=== PATIENT | male | born 1975 | race Two or more races ===

== ENCOUNTER 2020-03-28 19:24 | Emergency (ER) | payer SELFPAY ==
[~2020-03-28] VITALS: Ht 188 cm; Wt 99.8 kg
--- NOTE | 2020-03-28 19:42 | Emergency Room Report ---
History of Present Illness General Chief Complaint: Behavioral Complaint Source: Patient, Law Enforcement Present Illness HPI 44-year-old male brought in by PD on 5150 hold for danger to others. Patient is a schizophrenic. He was allegedly threatening the lives of his family and has neighbors according to PD. Patient is uncooperative with assessment He is agitated, found in a spit mask secondary to spitting, and in four-point restraints placed by PD. He denies any complaints at this time and is stating "get me out" The patient's symptoms were gradual onset, severity was moderate, duration since 1 day. Quality: Denies pain Denies auditory or visual hallucination. Past medical history: Schizophrenia Past surgical history: Unable to obtain Smoking: Unable to obtain Alcohol use: Unable to obtain Drug use: Unable to obtain Review of systems: CONST: No fevers or chills, No night sweats PULMONARY: No productive cough, No shortness of breath CARDIAC: No chest pain, No palpitations GI: No vomiting, No diarrhea , No melena_or_BRBPR : No dysuria, No hematuria, No discharge NEURO: No new_focal_weakness_or_numbness, No confusion, No vision changes 14 point Review of Systems is otherwise negative except per HPI Physical Exam: GENERAL: Awake_alert_ nontoxic, no acute distress Spo2 99% on RA -normal EYES: Extraocular muscles are intact. Conjunctivae clear. Lids without swelling ENT: External nose and ear normal_in_appearance. Oropharynx clear. Head_ atraumatic, Moist_oral_mucosa NECK: No JVD. No meningismus. No thyromegaly. Supple. Trachea midline RESP: Normal respiratory effort. Symmetric rise. No stridor. Clear_to_ auscultation_No_rales_No_wheezes CARDIAC: Regular rate and regular rhytm. No_significant pedal edema. ABDOMEN: Soft. Nondistended. Nontender_No_rebound_or_guarding. MSK: Normal muscle tone, without rigidity. Extremities without asymmetric deformity or swelling. SKIN: Warm and dry. No visible cyanosis or pallor NEUROLOGIC: Alert, oriented x3. Motor_and_sensation_grossly_intact. Psych: Agitated. Thrashing in bed. Danger to staff. Spitting. Denies suicidal ideation. Will not cooperate. - COORDINATION OF CARE Case was discussed with: Patient Any labs and imaging that were ordered were interpreted as part of the medical decision making: Medical Decision Making/Plan: Differential diagnosis includes severe depression, suicidal ideation, bipolar disorder, psychosis, delusions, paranoid schizophrenia, drug abuse, drug intoxication, drug overdose, among others. The patient denies any suicide attempt, overdose, or ingestion. They exhibit no signs of any toxic syndrome or drug / alcohol withdrawal. Labs were ordered for evaluation. Largely unremarkable. Has Leukocytosis of 14, likely hemoconcentration. Also K3.3. Repleted. Also mild jose Cr 1.4 EKG is negative for obvious TCA OD however his QT interval is prolonged at 496. Mg given. Repeat EKG shows prolonged qt so more Mg given. ED intervention included hydration and IV magnesium 2g x2 Due to agitation, patient necessitated chemical sedation. He received Benadryl , Ativan, Haldol. He also needed to be kept in restraints secondary to being a danger to staff. The patient was observed for a period of time in the ED with serial neurologic exams. The patients presentation seems to be consistent with agitation / psychosis. They meet psychiatric hold criteria because of danger to others. The patient appears to be stable for transfer to a psychiatric facility for further psychiatric evaluation and care, without any obvious medical etiology for their symptoms. 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 Time is exclusive of separately billable procedures. Time includes: direct patient care, continuous monitoring and multiple patient reassessment, coordination of patient care, review of patient's medical records , medical consultation, family consultation regarding treatment decisions and documentation of patient care. Medical Decision Making Diagnostic Impression: Primary Impression: Agitation Additional Impressions: Homicidal ideation Schizophrenia Prolonged QT interval Methamphetamine abuse Marijuana abuse Hypokalemia JOSE (acute kidney injury) EKG Diagnostic Results BETSEY Joseph 12-lead EKG (interpreted by me) Time: 2017 Indication: Rhythm analysis Tracing visualized and Interpreted by me. Rhythm: Normal sinus rhythm Rate: 84 bpm QTc: 496 Morphology: No_significant_ST_elevations_or_depressions, No STEMI Impression: Prolonged QT interval. Normal sinus rhythm. Possible left ventricular hypertrophy 12-lead EKG (interpreted by me) Time: 2137 Indication: Rhythm analysis Tracing visualized and Interpreted by me. Rhythm: Normal sinus rhythm Rate: 81 bpm QTc: 497 normal sinus rhythm. Sinus arrhythmia. Morphology: No_significant_ST_elevations_or_depressions, No STEMI Impression: Prolonged QT Rhythm Strip Diag. Results Rhythm Strip Time: 20:29 EP Interpretation: yes Rate: 84 Rhythm: NSR, no PVC's, no ectopy Chest X-Ray Diagnostic Results Chest X-Ray Diagnostic Results : BETSEY Joseph Chest X-Ray: Views: 1 view(s) Indication: Altered mental status Findings: Normal heart size. Mediastinum normal. No infiltrate. Impression: No acute disease The X-ray(s) were independently viewed and interpreted contemporaneously Electronically signed by Kelsey arenas DO CT/MRI/US Diagnostic Results CT/MRI/US Diagnostic Results : Impression CT Head no Contrast Findings Patel-white matter differentiation is seen to be normal. Ventricles, extra-axial CSF spaces are seen to be unremarkable. No acute intracranial hemorrhage mass-effect or edema. Impression: No acute intracranial finding. Reevaluation Time: 22:40 Last Vital Signs Date Time Temp Pulse Resp B/P (MAP) Pulse Ox O2 Delivery O2 Flow Rate FiO2 03/28/20 19:27 22 99 Room Air Status: improved Disposition: PSYCH HOSP/UNIT Admit Decision Time: 20:29 Condition: Stable Kelsey Martinez D.O. Mar 28, 2020 19:42
[2020-03-28 19:45] VITALS: BP 127/81
[2020-03-28] MEDS ORDERED: Haloperidol 5mg/ml Inj IM ONE (19:45)
[2020-03-28] MEDS ORDERED: LORazepam Inj 2mg/ml 1ml IM ONE (19:45)
[2020-03-28] MEDS ORDERED: DiphenhydrAMINE 50mg/ml Inj IM ONE (19:45)
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
--- NOTE | 2020-03-28 20:00 | NUR ---
ED Nurse Note: After [employer] left room, patient calmed down and was cooperative with RN. Patient reoriented and explained situation. Patient reminded he cannot use foul language with staff. Patient agreed with plan. Will plan to DC restraints.
[2020-03-28 20:05] VITALS: BP 128/85
--- NOTE | 2020-03-28 20:05 | NUR ---
ED Nurse Note: Per SALONI JAMES violent restraints at this time. Patient is calm and cooperative. Will continue to monitor for change in condition.
--- NOTE | 2020-03-28 21:00 | NUR ---
BELONGINGS IN LOCKER #2.
[2020-03-28 21:07] LABS: ANION GAP 9 mmol/L (5-15); BASOPHILS % (AUTO) 1.3 % (0.0-2.0); BLOOD UREA NITROGEN 22 mg/dL (7-18); CALCIUM 9.3 MG/DL (8.5-10.1); CARBON DIOXIDE 29 MMOL/L (21-32); CHLORIDE 102 MMOL/L (98-107); CREATININE 1.4 MG/DL (0.55-1.30); EOSINOPHILS % (AUTO) 1.3 % (0.0-3.0); HEMOGLOBIN 13.1 G/DL (14.2-18.0); LYMPHOCYTES % (AUTO) 11.9 % (20.0-45.0); MEAN CORPUSCULAR VOLUME 86 FL (80-99); MONOCYTES % (AUTO) 5.5 % (1.0-10.0); NEUTROPHILS % (AUTO) 80.1 % (45.0-75.0); PLATELET COUNT 311 K/UL (150-450); POTASSIUM 3.3 MMOL/L (3.5-5.1); RED BLOOD COUNT 4.65 M/UL (4.70-6.10); RED CELL DISTRIBUTION WIDTH 13.2 % (11.6-14.8); SODIUM 140 MMOL/L (136-145); WHITE BLOOD COUNT 14.2 K/UL (4.8-10.8)
[2020-03-28 21:10] LABS: AMMONIA < 10 umol/L (11-32); APPEARANCE,URINE SLIGHTLY CLOUDY; BILIRUBIN, URINE NEGATIVE (NEGATIVE); GLUCOSE, URINE (UA) NEGATIVE (NEGATIVE); KETONES,URINE 1+ (NEGATIVE); LEUKOCYTE ESTERASE ,URINE NEGATIVE (NEGATIVE); NITRITE,URINE NEGATIVE (NEGATIVE); PH,URINE 5 (4.5-8.0); PROTEIN,URINE 2+ (NEGATIVE); UROBILINOGEN,URINE 1 MG/DL (0.0-1.0)
[2020-03-28] MEDS ORDERED: cefTRIAXone 1 GM in NS 55 ML IVPB ONE (21:15)
[2020-03-28 21:16] LABS: COLOR,URINE YELLOW
[2020-03-28 21:19] LABS: ALANINE AMINOTRANSFERASE 33 U/L (12-78); ALKALINE PHOSPHATASE 67 U/L (46-116); ASPARTATE AMINO TRANSFERASE 28 U/L (15-37); CREATINE KINASE 235 U/L (26-308)
--- NOTE | 2020-03-28 21:36 | Diagnostic Imaging Report ---
INDICATION: Altered mental status COMPARISON: FINDINGS: Single frontal view demonstrates a normal cardiomediastinal silhouette. The lungs are clear. No pleural effusions. The visualized osseous structures are within normal limits. IMPRESSION: No acute cardiopulmonary disease.
--- NOTE | 2020-03-28 21:54 | Diagnostic Imaging Report ---
CT head without contrast History: Altered mental status Technique: Axial noncontrast head CT. Technique more: CTDI is 53.4 mGy and DLP is 1045.50 mGy-cm. Technique more: One or more of the following dose reduction techniques were used: automated exposure control, adjustment of the mA and/or kV according to patient size, use of iterative reconstruction technique. Comparison: None Findings: Patel-white matter differentiation is seen to be normal. Ventricles, extra-axial CSF spaces are seen to be unremarkable. No acute intracranial hemorrhage mass-effect or edema. Impression: No acute intracranial finding.
[2020-03-28 23:30] VITALS: BP 124/68
--- NOTE | 2020-03-28 23:30 | NUR ---
ED Nurse Note: Patient is sleeping soundly, in no acute distress. Vital signs are stable. RN is bedside as sitter with continuous monitoring. Safety measures met.
[2020-03-29] VITALS (9 sets, daily range): BP systolic 118–127; BP diastolic 65–87
--- NOTE | 2020-03-29 01:00 | NUR ---
ED Nurse Note: Patient is snoring, sleeping soundly in bed. NAD noted. RN remains bedside as sitter; safety precautions in place. Will continue to monitor.
--- NOTE | 2020-03-29 03:04 | NUR ---
HAND-OFF: Report given to RAMÓN Travis. Patient is in bed with safety measures in place. Patient has been sleeping.
--- NOTE | 2020-03-29 03:05 | NUR ---
ED Nurse Note: Report received from MARIELOS MELGAR. Patient asleep on bed
--- NOTE | 2020-03-29 05:00 | NUR ---
ED Nurse Note: Patient asleep on bed. No signs of agitation/anxiety noted
--- NOTE | 2020-03-29 07:12 | NUR ---
HAND-OFF: Report given to KAITLIN MELGAR. No changes in behavior noted.
--- NOTE | 2020-03-29 07:34 | NUR ---
ED Nurse Note: Sitter at bedside. Pt eating breakfast. Pt denies SI or HI. Awake and a&ox4.
--- NOTE | 2020-03-29 08:57 | NUR ---
ED Nurse Note: Pt moved ti Fast track. Report given to Selene MELGAR.
--- NOTE | 2020-03-29 12:10 | NUR ---
ED Nurse Note: Dougherty and juice provided to pt. 100 % consumed. Isadora mandel at the bed side.
--- NOTE | 2020-03-29 13:00 | NUR ---
ED Nurse Note: Pt calm and restinmg on gurney with no distress. Sitter Isadora at the bed side. Will continue to closely monitor.
--- NOTE | 2020-03-29 13:25 | NUR ---
HAND-OFF: Report given to Avis MELGAR.
--- NOTE | 2020-03-29 13:30 | NUR ---
ED Nurse Note: pt care endorsed by RAMÓN Hewitt. Pt is calm and resting on gurney with no acute distress noted at this time. pt was provided with extra blankets and lights dimmed for comfort. Sitter Isadora at the bed side, all safety precautions are in place. L AC IV line is patent and intact, flushing well. Will continue to closely monitor.
--- NOTE | 2020-03-29 14:42 | NUR ---
ED Nurse Note: pt asked and was provided with sandwich and juices. tolerated well. dinner tray ordered for pt. sitter remains at bedside, all safety precautions are in place. will cont to monitor pt
--- NOTE | 2020-03-29 16:00 | NUR ---
ED Nurse Note: Pt able to ambulate to restroom with steady gait, appears to be agitated d/t not being placed at a psych facility yet. RN explained to pt that we are calling multiple facilities, pt verablized understanding and calmed down. Sitter Isadora at the bed side, all safety precautions are in place. L AC IV line is patent and intact, flushing well. Will continue to closely monitor.
--- NOTE | 2020-03-29 18:05 | NUR ---
ED Nurse Note: Pt is resting on gurney with no acute distress noted at this time, when he is awake he talks to himself. lights are dimmed for comfort, all safety precautions are in place. Will continue to closely monitor.
--- NOTE | 2020-03-29 20:43 | NUR ---
ED Nurse Note: Pt talking to self, making rude remarks to RN, when asked to stop pt complies but continues to talk to himself loudly in his room. no acute distress is noted at this time, pt provided with and consumed dinner without incident. all safety precautions are in place. will cont to monitor pt
--- NOTE | 2020-03-29 22:15 | NUR ---
ED Nurse Note: Received patient sleeping in bed with no acute distress. respirations even and unlabored. arousable to name. patient ao4. denies pain, si or hi. calm and cooperative. Environmental risk safety preacutions observed. Decreased environmental stimuli. Offered nourishment and toileting; patient refused and fell back asleep. All safety measures met. Ressumed continuous monitoring; patient within visual distance.
--- NOTE | 2020-03-29 22:17 | NUR ---
HAND-OFF: Report given to Iam Butts RN.
--- NOTE | 2020-03-29 23:30 | NUR ---
ED Nurse Note: Confirmed belongings placement in Psych locker 2 with copy of belongings list; original list in chart.
--- NOTE | 2020-03-30 00:31 | NUR ---
ED Nurse Note: Patient remains sleeping in bed with no acute signs of distress. even and unlabored respirations visualized. continuous observation resumed.
[2020-03-30 00:38] VITALS: BP 122/84
--- NOTE | 2020-03-30 02:00 | NUR ---
ED Nurse Note: Patient sleeping in bed with no acute distress. respirations even and unlabored. will continue to monitor.
--- NOTE | 2020-03-30 05:18 | NUR ---
ED Nurse Note: Patient remains in bed sleeping without acute distress. Respirations even and unlabored. arousable to name. Reassessed vitals; stable to baseline. denies HI or SI. Offered nourishment and toileting; patient refused. patient fell back asleep. continous obeservation resume.
[2020-03-30 05:22] VITALS: BP 126/88
--- NOTE | 2020-03-30 06:06 | NUR ---
ED Nurse Note: patient remains stable to baseline. Asleep in bed with no acute distress. respirations even and unlabored. able to reposition self.
[2020-03-30 07:02] VITALS: BP 132/83
--- NOTE | 2020-03-30 07:02 | NUR ---
ED Nurse Note: Report received from Iam CRUZ Rn. PT currently asleep, vital signs stable at the moment. pt meal tray ordered.
--- NOTE | 2020-03-30 07:05 | NUR ---
ED Nurse Note: Pt has no IV site noted. Skin intact.
--- NOTE | 2020-03-30 07:44 | NUR ---
ED Nurse Note: Breakfast tray served to pt.
--- NOTE | 2020-03-30 07:55 | NUR ---
ED Nurse Note: Pt walked out of room and walked to Nurses station. Pt aggressively raising voice at staff stating "How much longer i got to be here. f*darshana kelly going to natalio this place. why am i held against my will?! what if i try to run out right now!" Pt angrily cursing in divehi.
--- NOTE | 2020-03-30 07:57 | NUR ---
ED Nurse Note: Pt walked back to room and is constantly rambling aggressively in room yelling "I aint no psych pt". Security at bedside.
--- NOTE | 2020-03-30 08:00 | NUR ---
ED Nurse Note: Security left bedside. Pt was able to be reoriented with verbal cues. pt vocalizing nonsense and speaking to self.
--- NOTE | 2020-03-30 09:00 | NUR ---
ED Nurse Note: Pt in bed rambling, "Wow youre billionaire b*tch, mahnaz, youre going to go blind, what the f*ck are you looking!" Pt in room pacing and yelling in the dark.
[2020-03-30 09:02] VITALS: BP 136/85
--- NOTE | 2020-03-30 09:02 | NUR ---
ED Nurse Note: Pt ambulated to restroom with steady gait.
--- NOTE | 2020-03-30 09:19 | NUR ---
ED Nurse Note: Pt returned to room. Pt was under nurse supervision during duration of bathroom visit
--- NOTE | 2020-03-30 09:35 | NUR ---
[facility] WAS CALLED [facility] W/ TRAN AND WILL SEND TEAM TO EVALUATE PT
--- NOTE | 2020-03-30 10:54 | NUR ---
SANDY FROM [facility] CALLED AND STATED THAT PET TEAM WILL COME WITHIN FEW HOURS TO EVALUATE PT
[2020-03-30 11:02] VITALS: BP 146/88
--- NOTE | 2020-03-30 11:30 | NUR ---
ED Nurse Note: Pt in in room awake, rambling nonsense and talk to self. pt is able to be reoriented and follows commands.
--- NOTE | 2020-03-30 12:27 | NUR ---
ED Nurse Note: Pt walked up to nurses station yelling "Watch how easy i can run out of here! F*ck you and f*ck this place". Pt was verbally cued to returned back to room pt states "Shut the f*ck up and leave me alone". Pt returned to room and continued talking to self.
--- NOTE | 2020-03-30 13:24 | NUR ---
ED Nurse Note: Pt in bed, continously speaking to himself and rambling nonsense. pt vss. waitnig for lunch tray
--- NOTE | 2020-03-30 14:10 | NUR ---
ED Nurse Note: Dr. Max at bedside
[2020-03-30] MEDS ORDERED: Haloperidol Decanoate (Long Acting) 50mg Inj IM ONE (14:15)
--- NOTE | 2020-03-30 14:18 | NUR ---
ED Nurse Note: called pharmacy for haldol order. 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
--- NOTE | 2020-03-30 14:19 | Emergency Room Report ---
Physical Exam Vital Signs Date Time Temp Pulse Resp B/P (MAP) Pulse Ox O2 Delivery O2 Flow Rate FiO2 03/28/20 19:27 22 99 Room Air 03/28/20 19:45 98.9 95 127/81 Medical Decision Making Diagnostic Impression: Primary Impression: Agitation Additional Impressions: Marijuana abuse Prolonged QT interval Schizophrenia Methamphetamine abuse JOSE (acute kidney injury) Homicidal ideation Hypokalemia ER Course Assumed care of the patient from the previous provider at approximately 0600 hrs. Please refer to initial note for full history and physical exam. Briefly, 44-year-old male present on 5150 hold for his homicidal ideation. He has been medically cleared and is pending placement in psychiatric facility. No further outburst throughout the day. Patient has been evaluated by her psychiatrist, Dr. Max, who has cleared the patient for discharge. He will be given 100 mg IM Haldol prior to departure to which the patient agrees. Denies further homicidality or suicidality at this point. Drug abuse and detox service information has been included in discharge paperwork at staff nearby clinics. We will follow-up on an outpatient basis. Instructed to return with new or worsening symptoms. Last Vital Signs Date Time Temp Pulse Resp B/P (MAP) Pulse Ox O2 Delivery O2 Flow Rate FiO2 03/30/20 11:02 98.5 93 19 146/88 99 Room Air Disposition: HOME, SELF-CARE Condition: Stable Referrals: NOT CHOSEN IPA/MD,REFERRING (PCP) [facility] - Peds ER - [facility] Intake Hotline - [facility] - [facility] Patient Instructions: Stimulant Use Disorder-Methamphetamines Additional Instructions: Drink plenty of fluids to avoid dehydration. In the future, refrain from using any illicit drugs as it can be hazardous to your health and even fatal. If you need help with drug or alcohol abuse contact one of the resources listed here in your discharge paperwork. Return to the emergency department with any new or worsening symptoms. Dennis Patten MD Mar 30, 2020 14:19
--- NOTE | 2020-03-30 14:30 | NUR ---
ER DISCHARGE NOTE: Patient is cleared to be discharged per ERMD, pt is aox4, on room air, with stable vital signs. pt was given dc isntructions, pt was able to verbalize understanding, pt id band removed without complications. pt is able to ambulate with steady gait. pt took all belongings. Pt cleared per Dr. Max. Per Dr. Max give pt medication and he may be discharged.
[2020-03-30 14:31] VITALS: BP 138/79
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
== END 2020-03-30 14:32 | disposition home or self-care (01) ==
LOC: EMR 19:45
DX: R45.850 Homicidal ideations (principal); R45.1 Restlessness and agitation; F20.9 Schizophrenia, unspecified; R94.31 Abnormal electrocardiogram [ECG] [EKG]; F15.10 Other stimulant abuse, uncomplicated; F12.10 Cannabis abuse, uncomplicated; E87.6 Hypokalemia; N17.9 Acute kidney failure, unspecified; I49.9 Cardiac arrhythmia, unspecified; F19.94 Other psychoactive substance use, unspecified with psychoactive substance-induced mood disorder; D72.829 Elevated white blood cell count, unspecified
CPT/HCPCS: 36415; 70450; 71045; 80053; 80307; 81003; 82140; 82550; 84443; 84484; 85025; 93005; 96361; 96365; 96367; 96372; 99291; G0480; J0696; J1200; J1630; J1631; J7030; U0002